=== PATIENT | female | born 1935 | race Caucasian/White ===

== ENCOUNTER 2021-10-07 11:01 | Day surgery (SDC) | payer MEDICARE ==
[2021-10-02 12:07] LABS: BASOPHILS % (AUTO) 0.5 % (0-1); EOSINOPHILS # (AUTO) 0.1 X10'3 (0-0.9); EOSINOPHILS % (AUTO) 1.2 % (0-6); HEMATOCRIT 43.9 % (35.0-45.0); LYMPHOCYTES # (AUTO) 0.8 X10'3 (1.1-4.8); LYMPHOCYTES % (AUTO) 12.3 % (21-51); MEAN CORPUSCULAR HEMOGLOBIN 31.7 PG (27.0-31.0); MEAN CORPUSCULAR HGB CONC 34.1 g/dL (33.0-36.5); MEAN CORPUSCULAR VOLUME 92.9 FL (78-98); MEAN PLATELET VOLUME 7.9 FL (7.4-10.4); MONOCYTES # (AUTO) 0.5 X10'3 (0-0.9); MONOCYTES % (AUTO) 8.3 % (2-12); NEUTROPHILS # (AUTO) 4.9 X10'3 (1.8-7.7); NEUTROPHILS % (AUTO) 77.7 % (42-75); PLATELET COUNT 222 X10'3 (140-440); RED BLOOD COUNT 4.72 X10'6 (4.20-5.60); RED CELL DISTRIBUTION WIDTH 13.1 % (11.5-14.5); WHITE BLOOD COUNT 6.3 X10'3 (4.5-11.0)
[2021-10-02 12:10] LABS: ALBUMIN 3.9 G/DL (3.4-5.0); ANION GAP 9 (8-16); BLOOD UREA NITROGEN 25 MG/DL (7-18); BUN/CREATININE RATIO 11.5 (6.6-38.0); CALCIUM 9.4 MG/DL (8.5-10.1); CHLORIDE 105 MMOL/L (99-107); CREATININE 2.17 MG/DL (0.40-0.90); GLUCOSE 113 MG/DL (70-104); POTASSIUM 4.2 MMOL/L (3.5-5.1); SODIUM 141 MMOL/L (135-145); TOTAL CARBON DIOXIDE 26.9 MMOL/L (24-32); eGFR 21 ML/MIN
[2021-10-02 12:39] LABS: PARTIAL THROMBOPLASTIN TIME 28 SECONDS (22-32)
[2021-10-07] VITALS (8 sets, daily range): BP systolic 106–146; BP diastolic 57–66
[~2021-10-07] VITALS: Ht 157.5 cm; Wt 70.4 kg
[2021-10-07] MEDS ORDERED: diphenhydrAMINE 25mg capsule PO PRN (11:20)
[2021-10-07] MEDS ORDERED: LORazepam 0.5 MG tablet PO PRN (11:20)
[2021-10-07] MEDS ORDERED: normal saline 1,000 ML IV SCH (11:20)
[2021-10-07] MEDS ORDERED: DONE10TA44 PO (11:32)
[2021-10-07] MEDS ORDERED: METO-411 PO (11:32)
[2021-10-07] MEDS ORDERED: FLUT50DI3 NAS (11:32)
[2021-10-07] MEDS ORDERED: LEVO88TA7 PO (11:32)
[2021-10-07] MEDS ORDERED: ATRNS (11:32)
[2021-10-07] MEDS ORDERED: AMLO5TAB16 PO (11:32)
[2021-10-07] MEDS ORDERED: OLAN2.5T28 PO (11:32)
[2021-10-07] MEDS ORDERED: ATOR40TA72 PO (11:32)
[2021-10-07] MEDS ORDERED: TRAZ-251 PO (11:32)
[2021-10-07] MEDS ORDERED: ASPI-1397 PO (11:32)
[2021-10-07] MEDS ORDERED: GABA300C PO (11:32)
[2021-10-07] MEDS ORDERED: LORA10CA PO (11:37)
[2021-10-07] MEDS ORDERED: VENTOLIN INH (11:37)
[2021-10-07] MEDS ORDERED: MAGN250T11 PO (11:37)
[2021-10-07] MEDS ORDERED: midazolam 1 mg/ML 2ml injection ONE (11:56)
[2021-10-07] MEDS ORDERED: LIDOcaine 1% (10mg/ml)w/preservative injection 20ml MDV ONE (11:56)
[2021-10-07] MEDS ORDERED: fentaNYL/PF 50MCG/1 ML 2ML syringe ONE (11:56)
[2021-10-07] MEDS ORDERED: iohexol 350MG/ML 100ml bottle IV ONE (11:57)
[2021-10-07] MEDS ORDERED: nitroGLYCERIN-Tridil 50MG/D5W 250 ML IV ONE (12:11)
[2021-10-07] MEDS ORDERED: heparin 1,000unit/ml 10ml vial 10 ML ONE (12:11)
[2021-10-07] MEDS ORDERED: verapamil 2.5 mg/ml inj IV ONE (12:11)
[2021-10-07] MEDS ORDERED: OXAZEpam 15mg capsule PO PRN (13:45)
[2021-10-07] MEDS ORDERED: ondansetron/PF 4mg/2ml inj IV PRN (13:45)
[2021-10-07] MEDS ORDERED: proCHLORperazine 10 MG/2 ml inj IV PRN (13:45)
== END 2021-10-07 16:05 | disposition home or self-care (01) ==
LOC: SSTAY O 11:01
PROVIDERS: ATTEND Internal Medicine Interventional Cardiology
DX: I35.0 Nonrheumatic aortic (valve) stenosis (principal); I25.10 Atherosclerotic heart disease of native coronary artery without angina pectoris; I10 Essential (primary) hypertension; E03.9 Hypothyroidism, unspecified; I34.0 Nonrheumatic mitral (valve) insufficiency; I27.20 Pulmonary hypertension, unspecified; E05.00 Thyrotoxicosis with diffuse goiter without thyrotoxic crisis or storm; I65.23 Occlusion and stenosis of bilateral carotid arteries; Z79.01 Long term (current) use of anticoagulants; Z79.899 Other long term (current) drug therapy; Z79.82 Long term (current) use of aspirin; Z85.3 Personal history of malignant neoplasm of breast; Z88.5 Allergy status to narcotic agent; Z87.891 Personal history of nicotine dependence
CPT/HCPCS: 36415; 80048; 85025; 85610; 85730; 93005; 93454; 99152; C1769; C1894; J1644; J2001; J2250; J3010; J7030; Q0163; Q9967; A4620; A5120; A6258; J3490

== ENCOUNTER 2021-10-22 08:06 | Outpatient (CLI) | payer MEDICARE, MEDICAID ==
[~2021-10-22 08:06] MED LIST: AMLO5TAB16 PO; ASPI-1397 PO; ATOR40TA72 PO; ATRNS; DONE10TA44 PO; FLUT50DI3 NAS; GABA300C PO; LEVO88TA7 PO; LORA10CA PO; MAGN250T11 PO; METO-411 PO; OLAN2.5T28 PO; TRAZ-251 PO; VENTOLIN INH
[2021-10-22 08:59] LABS: PARTIAL THROMBOPLASTIN TIME 29 SECONDS (22-32)
[2021-10-22 09:01] LABS: ALANINE AMINOTRANSFERASE 25 U/L (12-78); ALBUMIN 3.7 G/DL (3.4-5.0); ALBUMIN/GLOBULIN RATIO 1.2 (1.1-1.5); ALKALINE PHOSPHATASE 105 IU/L (46-116); ANION GAP 7 (8-16); ASPARTATE AMINO TRANSFERASE 17 U/L (10-37); BILIRUBIN,TOTAL 0.3 MG/DL (0.1-1.0); BLOOD UREA NITROGEN 19 MG/DL (7-18); BUN/CREATININE RATIO 9.1 (6.6-38.0); CALCIUM 9.1 MG/DL (8.5-10.1); CHLORIDE 100 MMOL/L (99-107); CREATININE 2.09 MG/DL (0.40-0.90); GLUCOSE 127 MG/DL (70-104); POTASSIUM 4.2 MMOL/L (3.5-5.1); SODIUM 135 MMOL/L (135-145); TOTAL PROTEIN 6.9 G/DL (6.4-8.2); eGFR 22 ML/MIN
[2021-10-22] MEDS ORDERED: IODIXANOL 320 MG/ML INFUS..BTL 100ML IV ONE (09:26)
[2021-10-22] MEDS ORDERED: IODIXANOL 320 MG/ML INFUS..BTL 50ML IV ONE (09:26)
[2021-10-22 09:31] LABS: BASOPHILS % (AUTO) 0.3 % (0-1); EOSINOPHILS # (AUTO) 0.1 X10'3 (0-0.9); HEMATOCRIT 40.1 % (35.0-45.0); HEMOGLOBIN 13.9 g/dl (12.0-16.0); LYMPHOCYTES # (AUTO) 1.2 X10'3 (1.1-4.8); LYMPHOCYTES % (AUTO) 18.3 % (21-51); MEAN CORPUSCULAR HEMOGLOBIN 31.8 PG (27.0-31.0); MEAN CORPUSCULAR HGB CONC 34.8 g/dL (33.0-36.5); MEAN CORPUSCULAR VOLUME 91.6 FL (78-98); MEAN PLATELET VOLUME 7.9 FL (7.4-10.4); MONOCYTES # (AUTO) 0.5 X10'3 (0-0.9); NEUTROPHILS # (AUTO) 4.7 X10'3 (1.8-7.7); NEUTROPHILS % (AUTO) 72.4 % (42-75); PLATELET COUNT 237 X10'3 (140-440); RED BLOOD COUNT 4.38 X10'6 (4.20-5.60); WHITE BLOOD COUNT 6.5 X10'3 (4.5-11.0)
== END 2021-10-22 23:59 | disposition home or self-care (01) ==
LOC: RAD 08:06
PROVIDERS: ATTEND Internal Medicine Cardiovascular Disease
DX: K57.30 Diverticulosis of large intestine without perforation or abscess without bleeding (principal); I70.1 Atherosclerosis of renal artery; M47.816 Spondylosis without myelopathy or radiculopathy, lumbar region; E27.8 Other specified disorders of adrenal gland; K76.0 Fatty (change of) liver, not elsewhere classified; I70.8 Atherosclerosis of other arteries; I70.0 Atherosclerosis of aorta; I25.10 Atherosclerotic heart disease of native coronary artery without angina pectoris; I35.1 Nonrheumatic aortic (valve) insufficiency; J98.11 Atelectasis; Z20.822 Contact with and (suspected) exposure to COVID-19; Z90.49 Acquired absence of other specified parts of digestive tract
CPT/HCPCS: 36415; 71046; 71275; 74174; 80053; 85025; 85610; 85730; 87635; 94010; 94727; 94729; C9803; Q9967

== ENCOUNTER 2021-12-13 23:35 | Inpatient (IN) | payer MEDICARE, MEDICAID ==
[~2021-12-13] VITALS: Ht 157.5 cm; Wt 66.7 kg
[2021-12-13] MEDS ORDERED: normal saline 1000ML IV soln IVB ONE (23:45)
[2021-12-14 00:28] LABS: BASOPHILS # (AUTO) 0.1 X10'3 (0-0.2); BASOPHILS % (AUTO) 0.5 % (0-1); EOSINOPHILS # (AUTO) 0.2 X10'3 (0-0.9); EOSINOPHILS % (AUTO) 1.5 % (0-6); HEMATOCRIT 38.9 % (35.0-45.0); HEMOGLOBIN 13.5 g/dl (12.0-16.0); LYMPHOCYTES # (AUTO) 0.5 X10'3 (1.1-4.8); LYMPHOCYTES % (AUTO) 4.7 % (21-51); MEAN CORPUSCULAR HEMOGLOBIN 31.7 PG (27.0-31.0); MEAN CORPUSCULAR HGB CONC 34.7 g/dL (33.0-36.5); MEAN CORPUSCULAR VOLUME 91.4 FL (78-98); MEAN PLATELET VOLUME 8.2 FL (7.4-10.4); MONOCYTES # (AUTO) 0.7 X10'3 (0-0.9); MONOCYTES % (AUTO) 6.9 % (2-12); NEUTROPHILS # (AUTO) 8.8 X10'3 (1.8-7.7); NEUTROPHILS % (AUTO) 86.4 % (42-75); PLATELET COUNT 100 X10'3 (140-440); RED BLOOD COUNT 4.25 X10'6 (4.20-5.60); RED CELL DISTRIBUTION WIDTH 13.1 % (11.5-14.5); WHITE BLOOD COUNT 10.2 X10'3 (4.5-11.0)
[2021-12-14 00:36] LABS: CLARITY,URINE CLEAR (Clear); COLOR,URINE YELLOW (Yellow); GLUCOSE, URINE NEGATIVE (Neg); KETONES,URINE NEGATIVE (Neg); LEUKOCYTE ESTERASE ,URINE NEGATIVE (Neg); NITRITES, URINE NEGATIVE (Neg); OCCULT BLOOD,URINE TRACE-LYSED (Neg); PROTEIN,URINE NEGATIVE (Neg); UROBILINOGEN,URINE 0.2 E.U/dL (0.2-1.0)
[2021-12-14 00:38] LABS: ALANINE AMINOTRANSFERASE 21 U/L (12-78); ALBUMIN 3.3 G/DL (3.4-5.0); ALBUMIN/GLOBULIN RATIO 1.1 (1.1-1.5); ALKALINE PHOSPHATASE 81 IU/L (46-116); ANION GAP 11 (8-16); ASPARTATE AMINO TRANSFERASE 40 U/L (10-37); BILIRUBIN,TOTAL 0.6 MG/DL (0.1-1.0); BLOOD UREA NITROGEN 21 MG/DL (7-18); CALCIUM 8.9 MG/DL (8.5-10.1); CHLORIDE 103 MMOL/L (99-107); CREATININE 2.09 MG/DL (0.40-0.90); GLUCOSE 129 MG/DL (70-104); SODIUM 136 MMOL/L (135-145); TOTAL CARBON DIOXIDE 22.2 MMOL/L (24-32); TOTAL PROTEIN 6.4 G/DL (6.4-8.2); eGFR 22 ML/MIN
[2021-12-14 00:41] LABS: UA COLLECTION TYPE STRAIGHT CATH
[2021-12-14 00:42] LABS: BACTERIA,URINE NONE SEEN /HPF (Neg); RBC,URINE 0-2 /HPF (0-2); SQUAMOUS EPITHELIAL CELL,UR FEW /LPF (FEW); WBC,URINE NONE SEEN /HPF (0-4)
--- NOTE | 2021-12-14 02:09 | NUR ---
Pt ambulated well with walker and minimum assistance. However, pt right had was resting on walker handle. After prompting pt to education rn handle more firmly, pt was only partially able to improve her education rn. After returning to room, pt displayed decreased strenght in right hand, with decreased reaction time. Pt LE strength equal BL, no facial droop noted. Pt was able to drink water with no difficulty. MD notified.
[2021-12-14] MEDS ORDERED: ALBU8HFA PO (04:21)
[2021-12-14] MEDS ORDERED: FLUT15.87 NS (04:23)
[2021-12-14] MEDS ORDERED: potassium CL 10mEq/100ml bag 100 ML IV PRN (04:30)
[2021-12-14] MEDS ORDERED: potassium Cl 20 mEq SR tablet PO PRN ×2 (04:30)
[2021-12-14] MEDS ORDERED: ondansetron/PF 4mg/2ml inj IV PRN (04:30)
[2021-12-14] MEDS ORDERED: magnesium 2GM in 50ml NS 50 ML IV PRN (04:30)
[2021-12-14] MEDS ORDERED: magnesium 4gm in 100ml NS 100 ML IV PRN (04:30)
[2021-12-14] MEDS ORDERED: acetaminophen 325mg tablet PO PRN ×2 (04:30)
[2021-12-14] MEDS ORDERED: magnesium Cl slow-release 64mg tablet PO PRN (04:30)
[2021-12-14] MEDS ORDERED: traZODone 50mg tablet PO PRN (04:40)
[2021-12-14] MEDS ORDERED: albuterol 2.5 MG/3 ML nebule NEB PRN (04:40)
--- NOTE | 2021-12-14 05:15 | NUR ---
Received pt via stretcher awake , alert and oriented name and place. pt transferred to bed with assistance, wick in place. Call light and and bedside table within reach with instruction to call for assistance as needed.
[2021-12-14 05:32] VITALS: BP 166/73
[2021-12-14 06:00] VITALS: BP 179/71
[2021-12-14] MEDS: normal saline 1000ml 1,000 ML IV SCH ×2 (06:00→21:24)
[2021-12-14] MEDS ORDERED: K and/or MAG REPLACEMENT MC SCH (08:00)
[2021-12-14] MEDS ORDERED: non-formulary drug (Magnesium Oxide (Magnesium) 1 TAB) PO SCH (08:00)
[2021-12-14] MEDS: fluticasone nasal spray 16GM bottle NS SCH ×2 (08:00→21:23)
[2021-12-14] MEDS: metoprolol succinate 25mg (24-HOUR) SR. Tablet PO SCH (08:25)
[2021-12-14] MEDS: aspirin 81mg, enteric-coated 1 TAB TABLET.DR PO SCH (08:26)
[2021-12-14] MEDS: amLODIPine 5mg tablet PO SCH (08:26)
[2021-12-14] MEDS: atorvastatin 20mg tablet PO SCH (08:27)
[2021-12-14] MEDS: levoTHYROXINE 88mcg tablet PO SCH (08:28)
[2021-12-14] MEDS: OLANZapine 2.5MG tablet PO SCH (08:28)
[2021-12-14] MEDS: heparin, porcine 5000 units/ml vial SQ SCH ×2 (08:29→16:00)
[2021-12-14 11:00] VITALS: BP 137/68
[2021-12-14 15:00] VITALS: BP 138/68
[2021-12-14 15:19] LABS: CHOL/HDL RATIO 1.9 (0.00-4.99); CHOLESTEROL 121 MG/DL (0-200); HDL CHOLESTEROL 65 MG/DL (35-60); LDL CHOLESTEROL 33 MG/DL (50-100); TRIGLYCERIDES 90 MG/DL (20-135)
--- NOTE | 2021-12-14 17:07 | NUR ---
platelet count 100. Heparin held. notified.
[2021-12-14] MEDS ORDERED: donepezil 5mg tablet PO SCH (21:00)
[2021-12-14 22:00] VITALS: BP 107/56
[2021-12-15] MEDS: heparin, porcine 5000 units/ml vial SQ SCH ×2 (01:41→08:00)
[2021-12-15 02:00] VITALS: BP 126/66
[2021-12-15 06:00] VITALS: BP 128/53
[2021-12-15 06:45] LABS: BASOPHILS % (AUTO) 0.5 % (0-1); EOSINOPHILS # (AUTO) 0.3 X10'3 (0-0.9); EOSINOPHILS % (AUTO) 3.5 % (0-6); HEMATOCRIT 38.7 % (35.0-45.0); HEMOGLOBIN 13.4 g/dl (12.0-16.0); LYMPHOCYTES # (AUTO) 0.7 X10'3 (1.1-4.8); LYMPHOCYTES % (AUTO) 8.3 % (21-51); MEAN CORPUSCULAR HEMOGLOBIN 31.9 PG (27.0-31.0); MEAN CORPUSCULAR HGB CONC 34.6 g/dL (33.0-36.5); MEAN CORPUSCULAR VOLUME 92.2 FL (78-98); MEAN PLATELET VOLUME 8.4 FL (7.4-10.4); MONOCYTES # (AUTO) 0.6 X10'3 (0-0.9); MONOCYTES % (AUTO) 7.9 % (2-12); NEUTROPHILS # (AUTO) 6.5 X10'3 (1.8-7.7); NEUTROPHILS % (AUTO) 79.8 % (42-75); PLATELET COUNT 78 X10'3 (140-440); RED BLOOD COUNT 4.19 X10'6 (4.20-5.60); RED CELL DISTRIBUTION WIDTH 12.9 % (11.5-14.5); WHITE BLOOD COUNT 8.1 X10'3 (4.5-11.0)
[2021-12-15 07:33] LABS: ALANINE AMINOTRANSFERASE 17 U/L (12-78); ALBUMIN 3.1 G/DL (3.4-5.0); ALBUMIN/GLOBULIN RATIO 1.1 (1.1-1.5); ALKALINE PHOSPHATASE 74 IU/L (46-116); ANION GAP 12 (8-16); ASPARTATE AMINO TRANSFERASE 26 U/L (10-37); BILIRUBIN,TOTAL 0.7 MG/DL (0.1-1.0); BLOOD UREA NITROGEN 20 MG/DL (7-18); BUN/CREATININE RATIO 12.1 (6.6-38.0); CALCIUM 8.7 MG/DL (8.5-10.1); CHLORIDE 105 MMOL/L (99-107); CREATININE 1.65 MG/DL (0.40-0.90); GLUCOSE 114 MG/DL (70-104); POTASSIUM 3.5 MMOL/L (3.5-5.1); SODIUM 140 MMOL/L (135-145); TOTAL CARBON DIOXIDE 22.9 MMOL/L (24-32); eGFR 29 ML/MIN
[2021-12-15] MEDS: atorvastatin 20mg tablet PO SCH (08:23)
[2021-12-15] MEDS: metoprolol succinate 25mg (24-HOUR) SR. Tablet PO SCH (08:23)
[2021-12-15] MEDS: aspirin 81mg, enteric-coated 1 TAB TABLET.DR PO SCH (08:23)
[2021-12-15 08:24] VITALS: BP_SYST 128
[2021-12-15] MEDS: amLODIPine 5mg tablet PO SCH (08:24)
[2021-12-15] MEDS: fluticasone nasal spray 16GM bottle NS SCH (08:25)
[2021-12-15] MEDS: OLANZapine 2.5MG tablet PO SCH (08:27)
[2021-12-15] MEDS: levoTHYROXINE 88mcg tablet PO SCH (08:32)
--- NOTE | 2021-12-15 14:19 | NUR ---
pt discharged home .Accompanied per daughter. Teaching/Instructions given , Pt states has belonging, denies any complaints or requests prior. Telemetry removed and IV access discontinued.
== END 2021-12-15 14:22 | disposition home or self-care (01) | DRG 65 ==
LOC: ER 23:35 → ED HOLD 12-14 04:34 → PCU 3S 12-14 05:11
PROVIDERS: ADMIT Internal Medicine; ATTEND Family Medicine
DX: I63.9 Cerebral infarction, unspecified (principal); N18.4 Chronic kidney disease, stage 4 (severe); Z66 Do not resuscitate; I25.10 Atherosclerotic heart disease of native coronary artery without angina pectoris; F03.90 Unspecified dementia, unspecified severity, without behavioral disturbance, psychotic disturbance, mood disturbance, and anxiety; I12.9 Hypertensive chronic kidney disease with stage 1 through stage 4 chronic kidney disease, or unspecified chronic kidney disease; D69.6 Thrombocytopenia, unspecified; E03.9 Hypothyroidism, unspecified; E78.5 Hyperlipidemia, unspecified; I27.20 Pulmonary hypertension, unspecified; R26.2 Difficulty in walking, not elsewhere classified; I65.21 Occlusion and stenosis of right carotid artery; Z79.899 Other long term (current) drug therapy; Z95.2 Presence of prosthetic heart valve; Z88.5 Allergy status to narcotic agent
CPT/HCPCS: 36415; 70450; 71045; 80053; 80061; 81001; 83605; 83880; 84443; 85025; 87040; 87081; 93005; 93308; 93880; 97116; 97161; 97530; 99285; G0378; J1644; J7030